=== PATIENT | female | born 1965 ===

== ENCOUNTER 2019-04-25 06:05 | Day surgery (SDC) | payer BC ==
[2019-04-25] MEDS ORDERED: fentaNYL 100 MCG/2 ML SDV IV ONE ×4 (06:06→07:03)
[2019-04-25] MEDS ORDERED: Midazolam 1 MG/ML 2 ML SDV IV ONE ×7 (06:06→07:01)
[2019-04-25] MEDS ORDERED: Midazolam 1 MG/ML 2 ML SDV ONE (06:13)
[2019-04-25] MEDS ORDERED: fentaNYL 100 MCG/2 ML SDV ONE (06:13)
[2019-04-25] MEDS ORDERED: Sodium Chloride 0.9% 10 ML Syringe FLUSH PRN (07:00)
[2019-04-25] MEDS ORDERED: Dextrose 5%-0.45% NaCl 1,000 ML IV SCH (07:00)
--- NOTE | 2019-04-25 08:16 | OR ---
DATE: 04/25/2019 PROCEDURE: Total colonoscopy, NBI, and snare polypectomy. INSTRUMENT USED: PCF-H190DL Olympus video colonoscope. PREMEDICATIONS: Fentanyl 125 mcg intravenous, Versed 4 mg intravenous, nasal O2 cannula. The procedure was done under pulse oximetry, BP recording, and vehicle fuel systems converter. INDICATION: The patient with rectal bleeding. Colonoscopic examination is done for detection of any polypoid lesions and removal, endoscopic hemostasis therapy if needed. DESCRIPTION OF PROCEDURE: Initial rectal exam was unremarkable. Rigid anoscopy was normal. The colonoscope was passed with ease up to the ileocecal area. Photographs were taken of the normal-appearing cecum, identified by landmarks of appendiceal orifice and double-bulged ileocecal folds. No bleeding was noted from any of the visualized areas at the commencement of the examination. No stricture. No vascular ectasia. No large isolated ulcerations seen. No evidence of diffuse inflammatory bowel disease in the form of friability, contact bleeding, or ulcerations. The bowel preparation was found to be adequate, [place] scale 2 in all the regions. In the proximal sigmoid colon, more than 1 cm sized pedunculated polyp was noted, NBI views were obtained, photographs were taken, snare polypectomy was done. Polypectomy site was found to be clean, photographs were taken. Using [employer], polyp fragments were collected and sent for histopathology. Probing the proximal sides of folds and flexures using adequate distention and clearing up the stool material, withdrawal of the scope was made. No bleeding was noted from any of the visualized areas at the completion of examination. IMPRESSION: Sigmoid colonic polyp. The patient tolerated the procedure well. [facility] /[id number]
== END 2019-04-25 09:45 | disposition home or self-care (01) ==
LOC: DL.ENDO 06:05
PROVIDERS: ATTEND Internal Medicine Gastroenterology
DX: D12.5 Benign neoplasm of sigmoid colon (principal); I10 Essential (primary) hypertension; J45.909 Unspecified asthma, uncomplicated; E66.09 Other obesity due to excess calories; Z91.040 Latex allergy status; Z88.1 Allergy status to other antibiotic agents; Z68.32 Body mass index [BMI] 32.0-32.9, adult
CPT/HCPCS: 45385; J2250; J3010; J7042